=== PATIENT | female | born 1970 | race Caucasian/White ===

== ENCOUNTER 2022-01-01 11:59 | Emergency (ER) | payer OTHER, SELFPAY ==
[2022-01-01 12:10] VITALS: BP 103/54; PULSE 82; RESP 16; TEMP 36.8; O2SAT 99
--- NOTE | 2022-01-01 13:37 | ED.GENADULT ---
HPI - General Adult General Chief complaint: Skin/Abscess/Foreign Body Stated complaint: tick bite on right thigh Source: patient Mode of arrival: ambulatory Limitations: no limitations History of Present Illness HPI narrative: Patient presents for evaluation of what she believes is a tick bite to the posterior aspect of the right thigh. She was scratching herself yesterday when she noticed what appeared to be a tick on the back of her right thigh. She states she had some assistance evaluating the area and expressing some purulent material from the area. She reports redness and itching to the affected area. She denies any fever, chills, nausea, vomiting or neurological symptoms. She believes she was exposed to the tick 2 days ago. She is not diabetic. She does not live locally. Related Data Home Medications Medication Instructions Recorded Confirmed cetirizine 10 mg tablet mg 01/01/22 gabapentin 600 mg tablet mg 01/01/22 sertraline 100 mg tablet mg 01/01/22 Allergies Allergy/AdvReac Type Severity Reaction Status Date / Time Sulfa (Sulfonamide Allergy Anaphylactic Verified 01/01/22 12:07 Antibiotics) Shock promethazine [From Phenergan] AdvReac Itching Verified 01/01/22 12:07 Review of Systems Review of Systems: CONSTITUTIONAL: Denies fever, chills, or sweats. EYES: Denies visual changes, redness, or discharge. ENT: Denies rhinorrhea, congestion, sore throat, or otalgia. CARDIOVASCULAR: Denies chest pain, palpitations, or edema. RESPIRATORY: Denies cough or dyspnea. GASTROINTESTINAL: Denies abdominal pain, nausea, vomiting, or diarrhea. GENITOURINARY: Denies dysuria or hematuria. SKIN: Reports raised, pruritic, erythematous lesion to posterior aspect of right thigh MUSCULOSKELETAL: Denies back pain, joint pain, or myalgia. NEUROLOGIC: Denies headache, numbness, dizziness, or weakness. PSYCHIATRIC: Denies anxiety or depression. [facility] Past Medical History Medical History Fibromyalgia Surgical History Surgical History History of back surgery History of hip surgery Family History Family History (Updated 01/01/22 @ 14:01 by NEHA Hauser, ) Mother Family history non-contributory Social History Social History Substance use: never Living arrangements: with family Gender identity (if verbalized by the patient): Female Spiritual care concerns: No Exam Narrative: GENERAL: Well-appearing, well-nourished, and in no acute distress. HEAD: Normocephalic, atraumatic. EYES: PERRLA and EOMI. ENT: Nares clear, no rhinorrhea or epistaxis. Mucous membranes moist. Oropharynx without tonsillar hypertrophy exudate or other lesions. Bilateral TMs pearly kitchen nonbulging NECK: Supple. No adenopathy or masses. No carotid bruits or JVD CHEST: Clear to auscultation. No respiratory distress. No wheezes rales or rhonchi HEART: Regular rate and rhythm. No murmur heard. Normal peripheral pulses. ABDOMEN: Soft, nontender, nondistended, normal active bowel sounds. EXTREMITIES: Normal range of motion. No edema. SKIN: Warm, dry, no rash. Approximately 2 mm scabbed lesion to the posterior aspect of the right thigh with approximately 1 cm area of surrounding erythema. NEURO: No focal deficits. Alert and oriented x3. PSYCH: Normal mood and affect. Course Course Emergency Course: This is a 51-year-old female who presented for evaluation of a suspected tick bite to the posterior aspect of her right thigh. She is within the timeframe that tick was removed in order to meet criteria for prophylaxis. Time of exposure is somewhat unclear and patient does not live locally. Therefore we will treat with doxycycline for prophylaxis. She should follow-up outpatient for further evaluation and treatment and return for worsening symptoms.
== END 2022-01-01 12:26 | disposition home or self-care (01) ==
PROVIDERS: Emergency Provider Nurse Practitioner
DX: S70.361A Insect bite (nonvenomous), right thigh, initial encounter (principal)
CPT/HCPCS: 99213; G0463